=== PATIENT | male | born 1970 | race Two or more races ===

== ENCOUNTER → 2021-03-13 | Outpatient (CLI) | payer OTHER ==
[~2021-03-13] MED LIST: IOPAMIDOL 370 MG/ML 200 ML INFUS..BTL INJ ONE
== END ==
LOC: DX 10:40
PROVIDERS: ATTEND Urology
DX: N35.919 Unspecified urethral stricture, male, unspecified site (principal)
CPT/HCPCS: 74450; Q9967

== ENCOUNTER → 2021-04-06 | Day surgery (SDC) | payer OTHER ==
[~2021-04-06] MED LIST changes: +ADVAIR 250-501 EACH INH; +BELLADONNA/OPIUM 30 MG SUPP RC ONE; +IOPAMIDOL 300MG/ML 50ML INFUS..BTL IV ONE; -IOPAMIDOL 370 MG/ML 200 ML INFUS..BTL INJ ONE; +IOTHALAMATE MEGLUMINE 17.20% 250 ML BTL ONE; +SODIUM CHLORIDE 0.9% 50ML 50 ML ONE; +VENTOLIN HFA18 GM INH
[2021-04-06 11:05] VITALS: BP 127/84
== END | disposition home or self-care (01) ==
LOC: OR 06:59
PROVIDERS: ATTEND Urology
DX: N35.912 Unspecified bulbous urethral stricture, male (principal); N32.89 Other specified disorders of bladder; J45.909 Unspecified asthma, uncomplicated; Z01.810 Encounter for preprocedural cardiovascular examination; Z01.812 Encounter for preprocedural laboratory examination; Z20.822 Contact with and (suspected) exposure to COVID-19
CPT/HCPCS: 52005; 52276; 74450; 93005; C1758; J0690; Q9967; U0002; Q9958

== ENCOUNTER → 2021-11-07 | Day surgery (SDC) | payer OTHER ==
[2021-11-03 10:42] LABS: BASOPHILS # (AUTO) 0.1 (0.0-0.1); BASOPHILS % 0.6 % (0.0-1.0); EOSINOPHILS # (AUTO) 0.1 (0.0-0.4); EOSINOPHILS % 0.9 % (0.0-6.0); HEMATOCRIT 46.7 % (38.2-49.6); HEMOGLOBIN 14.7 g/dL (14.0-18.0); LYMPHOCYTES # (AUTO) 2.1 (1.0-3.2); LYMPHOCYTES % 20.3 % (18.0-39.1); MEAN CORPUSCULAR HEMOGLOBIN 27.3 pg (28-32); MEAN CORPUSCULAR HGB CONC 31.5 g/dL (31-35); MEAN CORPUSCULAR VOLUME 86.8 fL (81-99); MONOCYTES # (AUTO) 0.7 (0.2-0.8); MONOCYTES % 6.2 % (4.4-11.3); NEUTROPHILS # (AUTO) 7.5 (2.1-6.9); NEUTROPHILS % 71.6 % (38.7-80.0); PLATELET COUNT 292 x10e3/uL (140-360); RED BLOOD COUNT 5.38 x10e6/uL (4.3-5.7); RED CELL DISTRIBUTION WIDTH 14.6 % (11.7-14.4)
[~2021-11-07] MED LIST changes: +B&O 60MG R/S 60 MG SUPP PR ONE; -BELLADONNA/OPIUM 30 MG SUPP RC ONE; +DEXAMETHASONE SOD PHOS INJ 4 MG/ML SDV ONE; +FENTANYL CITRATE/PF 100MCG/2 ML INJ ONE; -IOPAMIDOL 300MG/ML 50ML INFUS..BTL IV ONE; +IOPAMIDOL 610MG/1ML 300 MG/ML VIAL IV ONE; -IOTHALAMATE MEGLUMINE 17.20% 250 ML BTL ONE; +LIDOCAINE HCL 2% LOCAL INJ 5 ML SDV VIAL INJ ONE; +MIDAZOLAM HCL 2 MG/2 ML VIAL ONE; +ONDANSETRON HCL INJ 2MG/ML 2ML 2 MG/ML VIAL ONE; +POVIDONE IODINE 0.05% 0.05 % ML PO ONE; +PROPOFOL IV EMULSION 10 MG/ML 20 ML VIAL ONE; +SEVOFLURANE INHAL SOLN 250 ML PEN BTL ONE; -SODIUM CHLORIDE 0.9% 50ML 50 ML ONE
[2021-11-07 15:00] VITALS: BP 130/85
== END | disposition home or self-care (01) ==
LOC: OR 10:16
PROVIDERS: ATTEND Urology
DX: N35.912 Unspecified bulbous urethral stricture, male (principal); N13.30 Unspecified hydronephrosis; N39.0 Urinary tract infection, site not specified; J45.909 Unspecified asthma, uncomplicated; Z01.810 Encounter for preprocedural cardiovascular examination; Z01.812 Encounter for preprocedural laboratory examination; Z20.822 Contact with and (suspected) exposure to COVID-19; Z79.899 Other long term (current) drug therapy
CPT/HCPCS: 36415; 52005; 52276; 74420; 85025; 93005; C1758; J0690; J1100; J2001; J2250; J2405; J2704; J3010; Q9967; U0002

== ENCOUNTER 2021-11-19 05:31 | Inpatient (IN) | payer OTHER ==
[~2021-11-19] VITALS: Ht 172.7 cm; Wt 72.6 kg
[~2021-11-19 05:31] MED LIST changes: -B&O 60MG R/S 60 MG SUPP PR ONE; -DEXAMETHASONE SOD PHOS INJ 4 MG/ML SDV ONE; -FENTANYL CITRATE/PF 100MCG/2 ML INJ ONE; -IOPAMIDOL 610MG/1ML 300 MG/ML VIAL IV ONE; -LIDOCAINE HCL 2% LOCAL INJ 5 ML SDV VIAL INJ ONE; -MIDAZOLAM HCL 2 MG/2 ML VIAL ONE; -ONDANSETRON HCL INJ 2MG/ML 2ML 2 MG/ML VIAL ONE; -POVIDONE IODINE 0.05% 0.05 % ML PO ONE; -PROPOFOL IV EMULSION 10 MG/ML 20 ML VIAL ONE; -SEVOFLURANE INHAL SOLN 250 ML PEN BTL ONE
[2021-11-19] MEDS ORDERED: SODIUM CHLORIDE 0.9% 1000ML 1,000 ML IV STA ×2 (05:44)
[2021-11-19] MEDS ORDERED: ACETAMINOPHEN 325 MG TAB PO ONE (05:45)
[2021-11-19 05:57] LABS: BASOPHILS # (AUTO) 0.1 (0.0-0.1); BASOPHILS % 0.4 % (0.0-1.0); EOSINOPHILS % 0.1 % (0.0-6.0); HEMATOCRIT 47.8 % (38.2-49.6); HEMOGLOBIN 15.2 g/dL (14.0-18.0); LYMPHOCYTES # (AUTO) 1.9 (1.0-3.2); LYMPHOCYTES % 8.9 % (18.0-39.1); MEAN CORPUSCULAR HEMOGLOBIN 27.2 pg (28-32); MEAN CORPUSCULAR HGB CONC 31.8 g/dL (31-35); MEAN CORPUSCULAR VOLUME 85.7 fL (81-99); MONOCYTES # (AUTO) 1.1 (0.2-0.8); MONOCYTES % 5.4 % (4.4-11.3); NEUTROPHILS # (AUTO) 17.6 (2.1-6.9); NEUTROPHILS % 84.8 % (38.7-80.0); PLATELET COUNT 301 x10e3/uL (140-360); RED BLOOD COUNT 5.58 x10e6/uL (4.3-5.7); RED CELL DISTRIBUTION WIDTH 13.8 % (11.7-14.4)
[2021-11-19 06:00] LABS: CLARITY,URINE CLEAR (CLEAR); COLOR,URINE YELLOW (YELLOW); KETONES,URINE NEGATIVE (NEGATIVE); LEUKOCYTE ESTERASE ,URINE SMALL (NEGATIVE); NITRITE,URINE NEGATIVE (NEGATIVE); PROTEIN,URINE DIPSTICK TRACE (NEGATIVE); URINE UROBILINOGEN 0.2 mg/dL (0.2 - 1)
[2021-11-19 06:07] LABS: INR 0.95; PROTHROMBIN TIME 13.5 seconds (11.9-14.5)
[2021-11-19 06:08] LABS: PARTIAL THROMBOPLASTIN TIME 25.9 seconds (23.8-35.5)
[2021-11-19 06:15] LABS: BACTERIA,URINE FEW /HPF; RBC,URINE 0-5 /HPF (0-5)
[2021-11-19 06:17] LABS: ALANINE AMINOTRANSFERASE 22 IU/L (0-55); ALBUMIN 3.7 g/dL (3.5-5.0); ALBUMIN/GLOBULIN RATIO 0.9 (0.8-2.0); ALKALINE PHOSPHATASE 111 IU/L (40-150); BLOOD UREA NITROGEN 14 mg/dL (7-26); BUN/CREATININE RATIO 17 (6-25); CALCIUM 8.5 mg/dL (8.4-10.2); CARBON DIOXIDE 22 mmol/L (22-29); CHLORIDE 105 mmol/L (98-107); CREATINE KINASE 89 IU/L (30-200); CREATININE, SERUM 0.82 mg/dL (0.72-1.25); GLUCOSE 104 mg/dL (74-118); SODIUM 139 mmol/L (136-145)
[2021-11-19] MEDS ORDERED: CEFTRIAXONE 1 GM VIAL ONE (06:36)
[2021-11-19] MEDS ORDERED: ONDANSETRON HCL INJ 2MG/ML 2ML 2 MG/ML VIAL IV PRN (07:45)
[2021-11-19] MEDS ORDERED: ACETAMINOPHEN 325 MG TAB PO PRN (07:45)
[2021-11-19] MEDS ORDERED: IBUPROFEN 600 MG TAB PO PRN (07:45)
[2021-11-19] MEDS: SODIUM CHLORIDE 0.9% 1000ML 1,000 ML IV SCH ×2 (09:44→18:13)
[2021-11-19 16:53] VITALS: BP 115/75
[2021-11-19 17:38] VITALS: BP 114/57
[2021-11-19 17:58] VITALS: BP 114/57
[2021-11-19 18:07] VITALS: BP 114/57
[2021-11-19 20:00] VITALS: BP 121/71
[2021-11-20] VITALS (8 sets, daily range): BP systolic 110–156; BP diastolic 57–94
[2021-11-20] MEDS: SODIUM CHLORIDE 0.9% 1000ML 1,000 ML IV SCH ×3 (06:06→22:03)
[2021-11-20 06:32] LABS: BASOPHILS # (AUTO) 0.1 (0.0-0.1); BASOPHILS % 0.4 % (0.0-1.0); EOSINOPHILS # (AUTO) 0.1 (0.0-0.4); EOSINOPHILS % 0.5 % (0.0-6.0); HEMATOCRIT 42.1 % (38.2-49.6); HEMOGLOBIN 13.2 g/dL (14.0-18.0); LYMPHOCYTES # (AUTO) 1.1 (1.0-3.2); LYMPHOCYTES % 6.9 % (18.0-39.1); MEAN CORPUSCULAR HEMOGLOBIN 27.1 pg (28-32); MEAN CORPUSCULAR HGB CONC 31.4 g/dL (31-35); MEAN CORPUSCULAR VOLUME 86.4 fL (81-99); MONOCYTES # (AUTO) 0.9 (0.2-0.8); MONOCYTES % 5.5 % (4.4-11.3); NEUTROPHILS # (AUTO) 14.3 (2.1-6.9); NEUTROPHILS % 86.3 % (38.7-80.0); PLATELET COUNT 227 x10e3/uL (140-360); RED BLOOD COUNT 4.87 x10e6/uL (4.3-5.7); RED CELL DISTRIBUTION WIDTH 14.1 % (11.7-14.4)
[2021-11-20 06:55] LABS: ALBUMIN 3.1 g/dL (3.5-5.0); ALBUMIN/GLOBULIN RATIO 0.9 (0.8-2.0); ANION GAP 10.7 mmol/L (8-16); CALCIUM 7.9 mg/dL (8.4-10.2); CREATININE, SERUM 0.79 mg/dL (0.72-1.25); POTASSIUM 3.7 mmol/L (3.5-5.1)
[2021-11-20] MEDS ORDERED: CEFTRIAXONE 1 GM VIAL IM ONE (11:00)
[2021-11-20] MEDS ORDERED: GUAIFENESIN/DEXTROMETHORPHAN LIQD 5 ML UDC PO PRN (22:00)
[2021-11-21] VITALS (8 sets, daily range): BP systolic 115–145; BP diastolic 67–83
[2021-11-21] MEDS ORDERED: PHENAZOPYRIDINE HCL 100 MG TAB PO PRN (11:45)
[2021-11-21] MEDS: SODIUM CHLORIDE 0.9% 1000ML 1,000 ML IV SCH ×2 (12:02→19:45)
[2021-11-21] MEDS: PHENAZOPYRIDINE HCL 100 MG TAB PO SCH ×2 (14:09→21:07)
[2021-11-21] MEDS: ALBUTEROL/IPRATROPIUM 3 ML NEB NEB PRN (20:30)
[2021-11-22] VITALS (8 sets, daily range): BP systolic 116–135; BP diastolic 71–81
[2021-11-22] MEDS: ALBUTEROL/IPRATROPIUM 3 ML NEB NEB PRN ×3 (01:15→20:10)
[2021-11-22] MEDS: SODIUM CHLORIDE 0.9% 1000ML 1,000 ML IV SCH ×2 (05:20→15:38)
[2021-11-22] MEDS: PHENAZOPYRIDINE HCL 100 MG TAB PO SCH ×3 (08:50→20:35)
[2021-11-23] VITALS: BP 117/72
[2021-11-23] MEDS: ALBUTEROL/IPRATROPIUM 3 ML NEB NEB PRN ×2 (01:50→06:40)
[2021-11-23] MEDS: SODIUM CHLORIDE 0.9% 1000ML 1,000 ML IV SCH ×2 (03:46→10:59)
[2021-11-23 04:45] VITALS: BP 120/70
[2021-11-23 06:26] LABS: BASOPHILS % 0.5 % (0.0-1.0); EOSINOPHILS # (AUTO) 0.5 (0.0-0.4); EOSINOPHILS % 6.4 % (0.0-6.0); HEMATOCRIT 38.7 % (38.2-49.6); LYMPHOCYTES # (AUTO) 1.9 (1.0-3.2); LYMPHOCYTES % 24.2 % (18.0-39.1); MEAN CORPUSCULAR HEMOGLOBIN 27.1 pg (28-32); MEAN CORPUSCULAR VOLUME 87.6 fL (81-99); MONOCYTES # (AUTO) 0.8 (0.2-0.8); MONOCYTES % 10.4 % (4.4-11.3); NEUTROPHILS # (AUTO) 4.5 (2.1-6.9); NEUTROPHILS % 58.2 % (38.7-80.0); PLATELET COUNT 280 x10e3/uL (140-360); RED BLOOD COUNT 4.42 x10e6/uL (4.3-5.7); RED CELL DISTRIBUTION WIDTH 14.2 % (11.7-14.4)
[2021-11-23 07:02] LABS: ANION GAP 12.1 mmol/L (8-16); CALCIUM 7.9 mg/dL (8.4-10.2); CREATININE, SERUM 0.66 mg/dL (0.72-1.25); POTASSIUM 4.1 mmol/L (3.5-5.1)
[2021-11-23 08:19] VITALS: BP 117/74
[2021-11-23] MEDS: PHENAZOPYRIDINE HCL 100 MG TAB PO SCH (08:47)
[2021-11-23 08:51] VITALS: BP 117/74
[2021-11-23 11:48] VITALS: BP 120/75
== END 2021-11-23 12:10 | disposition home or self-care (01) | DRG 872 ==
LOC: ER 05:36 → ERHOLD 07:49 → MED/SURG3 17:08
DX: A41.51 Sepsis due to Escherichia coli [E. coli] (principal); N39.0 Urinary tract infection, site not specified; R32 Unspecified urinary incontinence; N35.919 Unspecified urethral stricture, male, unspecified site; R31.29 Other microscopic hematuria; J45.909 Unspecified asthma, uncomplicated; N32.81 Overactive bladder
CPT/HCPCS: 36415; 71045; 80048; 80053; 81001; 82550; 82553; 83605; 84484; 85025; 85610; 85730; 87040; 87071; 87086; 87186; 87205; 93005; 94799; 96360; 99284; J0696; J2543; J7030

== ENCOUNTER 2022-02-17 12:29 | Emergency (ER) | payer OTHER ==
[~2022-02-17] VITALS: Ht 172.7 cm; Wt 72.6 kg
[2022-02-17] MEDS ORDERED: VENTOLIN HFA18 GM INH (14:29)
[2022-02-17] MEDS ORDERED: ADVAIR 250-501 EACH INH (14:29)
== END 2022-02-17 14:02 | disposition home or self-care (01) ==
LOC: ER 12:34
DX: R05.9 Cough, unspecified (principal); J10.1 Influenza due to other identified influenza virus with other respiratory manifestations; R07.89 Other chest pain; R51.9 Headache, unspecified; Z20.822 Contact with and (suspected) exposure to COVID-19
CPT/HCPCS: 87400; 99283; U0002